=== PATIENT | female | born 1960 | race African-American/Black ===

== ENCOUNTER 2021-03-24 07:27 | Emergency (ER) | payer OTHER ==
[2021-03-24 07:36] VITALS: BP 133/83; PULSE 87; TEMP 99.6; BMI 31.4
== END 2021-03-24 08:02 | disposition home or self-care (01) ==
LOC: FER 07:27
DX: J06.9 Acute upper respiratory infection, unspecified (principal); Z11.52 Encounter for screening for COVID-19
CPT/HCPCS: 99283-25; C9803; U0003; U0005

== ENCOUNTER 2022-05-04 11:12 | Emergency (ER) | payer OTHER ==
[2022-05-04 11:34] VITALS: BMI 29.9
[2022-05-04] MEDS ORDERED: FAMOTIDINE 20 MG/50 ML IVPB 20 MG in PREMIX 50 IVPB ONE (11:47)
[2022-05-04] MEDS ORDERED: ONDANSETRON 4 MG/2 ML VIAL IVPB ONE (11:47)
[2022-05-04] MEDS ORDERED: FAMOTIDINE 20 MG/50 ML IVPB 20 MG/50 ML MG IVPB ONE (11:55)
[2022-05-04] MEDS ORDERED: ONDANSETRON 4 MG/2 ML VIAL ONE (11:55)
[2022-05-04 12:45] LABS: ALBUMIN 3.8 g/dl (3.4-5.0); BILIRUBIN,TOTAL 0.6 mg/dl (0.2-1); CALCIUM 10.6 mg/dl (8.5-10); CREATININE 1.1 mg/dl (0.55-1.3); HEMATOCRIT 35.3 % (32.4-45.2); HEMOGLOBIN 11.9 G/dL (10.7-15.3); MCH 29.5 pg (25.7-33.7); MCHC 33.7 g/dl (32.0-36.0); MEAN CELL VOLUME 87.7 fl (80-96); PLATELET COUNT 349.9 10^3/uL (134-434); RBC 4.03 10^6/uL (3.60-5.2); RDW 13.5 % (11.6-15.6); TOT PROT 7.1 g/dl (6.4-8.2); WHITE BLOOD COUNT 8.1 10^3/uL (4.0-10.8)
[2022-05-04 13:02] LABS: EPITHELIAL CELLS FEW /hpf
[2022-05-04 13:03] LABS: AMORP URATES 1+ /hpf (NONE SEEN)
[2022-05-04] MEDS ORDERED: ASPIRIN 81 MG CHEWABLE TABLETS PO ONE (13:08)
[2022-05-04] MEDS ORDERED: ASPIRIN 81 MG CHEWABLE TABLETS ONE (13:16)
[2022-05-04 13:42] LABS: PLATELET ESTIMATE ADEQUATE
[2022-05-04 14:05] VITALS: PULSE 98; RESP 16
[2022-05-04 14:59] VITALS: BP 109/72; TEMP 97.8
== END 2022-05-04 14:55 | disposition short-term general hospital (02) ==
LOC: SUPCPDRO 11:12 → FER 11:12
PROC: 3E033GC Introduction of Other Therapeutic Substance into Peripheral Vein, Percutaneous Approach (ICD-10-PCS; principal; 2022-05-04)
DX: R11.2 Nausea with vomiting, unspecified (principal); I24.9 Acute ischemic heart disease, unspecified
CPT/HCPCS: 36415; 80053; 81003; 81015; 84484; 85027; 93005; 99285-25; C9803-CS; U0003; U0005

== ENCOUNTER 2022-06-19 14:55 | Emergency (ER) | payer OTHER ==
[2022-06-19 15:04] VITALS: BMI 28.6
[2022-06-19] MEDS ORDERED: SODIUM CHLORIDE 0.9% 500 ML INFUS.BAG IV ONE (16:55)
[2022-06-19] MEDS ORDERED: LORazepam 2 MG TABLET PO ONE (16:56)
[2022-06-19] MEDS ORDERED: ATENOLOL 50 MG TABLET (FP) PO ONE (16:56)
[2022-06-19] MEDS ORDERED: ATENOLOL 50 MG TABLET (FP) ONE (17:02)
[2022-06-19] MEDS ORDERED: LORazepam 1 MG TABLET ONE (17:02)
[2022-06-19 17:30] LABS: BASO % 0.5 % (0-2.0); EOS % 1.7 % (0-4.5); HEMATOCRIT 29.3 % (32.4-45.2); HEMOGLOBIN 9.6 GM/dL (10.7-15.3); LYMPH % 34.7 % (8-40); MCH 27.4 pg (25.7-33.7); MCHC 32.8 g/dl (32.0-36.0); MEAN CELL VOLUME 83.7 fl (80-96); MEAN PLT VOLUME 7.2 fl (7.5-11.1); MONO % 13.1 % (3.8-10.2); PLATELET COUNT 323 10^3/uL (134-434); RBC 3.51 M/mm3 (3.60-5.2); RDW 12.9 % (11.6-15.6); WHITE BLOOD COUNT 4.9 K/mm3 (4.0-10.0)
[2022-06-19 17:58] LABS: CALCIUM 10.8 mg/dL (8.5-10.1)
[2022-06-19 17:59] LABS: ALBUMIN 3.7 g/dl (3.4-5.0); BLOOD UREA NITROGEN 13.8 mg/dL (7-18)
[2022-06-19 18:02] LABS: CREATININE 0.6 mg/dL (0.55-1.3)
[2022-06-19 18:03] LABS: BILIRUBIN,TOTAL 0.5 mg/dL (0.2-1); TOT PROT 7.2 g/dl (6.4-8.2)
[2022-06-19 19:40] VITALS: BP 130/80; PULSE 88; RESP 16; TEMP 98
== END 2022-06-19 20:52 | disposition home or self-care (01) ==
LOC: JER 14:55
DX: R00.2 Palpitations (principal)
CPT/HCPCS: 36415; 71046-TC-FY; 80053; 82962; 84439; 84443; 84481; 84484; 85025; 86850; 86900; 86901; 93005; 93010; 99285-25